=== PATIENT | female | born 1985 | race American Indian/Alaskan Native ===

== ENCOUNTER 2016-08-11 18:27 | Emergency (ER) | payer OTHER ==
[2016-08-11 18:37] VITALS: PULSE 82; RESP 16; TEMP 97.8; O2SAT 98; BMI 33.9
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
[2016-08-11 20:13] VITALS: BP 132/87
--- NOTE | 2016-08-12 11:23 | RAD ---
HISTORY: Upper back pain COMPARISON: No prior. FINDINGS: BONES: Bone alignment is normal. There is straightening of the thoracic spine. There are age indeterminate mild superior endplate compression deformities in the T8 and T9 vertebral bodies. DISC SPACES: Normal. SOFT TISSUES: Normal. OTHER FINDINGS: None. IMPRESSION: Age indeterminate mild superior endplate compression deformities in the T8 and T9 vertebral bodies. Straightening of the thoracic spine may be positional or related to muscle spasm.
== END 2016-08-11 20:12 | disposition home or self-care (01) ==
LOC: EDBD 18:27 → H.ER 18:27
DX: M54.9 Dorsalgia, unspecified (principal); M62.838 Other muscle spasm; V43.62XA Car passenger injured in collision with other type car in traffic accident, initial encounter; Y92.410 Unspecified street and highway as the place of occurrence of the external cause

== ENCOUNTER 2016-08-27 16:51 | Emergency (ER) | payer OTHER ==
[2016-08-27 16:52] VITALS: BMI 33.9
[2016-08-27 18:17] VITALS: BP 155/74; PULSE 96; RESP 16; TEMP 97.8; O2SAT 98
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
[2016-08-27 20:16] LABS: RBC URINE 1 /hpf (0-3); URINE BILIRUBIN NEGATIVE (NEGATIVE); URINE BLOOD NEGATIVE (NEGATIVE); URINE COLOR YELLOW (YELLOW); URINE GLUCOSE (UA) NEG (Normal); URINE KETONE NEGATIVE (NEGATIVE); URINE LEUKOCYTE ESTERASE NEG Leu/uL (Negative); URINE PROTEIN NEGATIVE (NEGATIVE); URINE UROBILINOGEN 0.2-1.0 mg/dL (0.2-1.0); WBC URINE 1 /hpf (0-5)
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
== END 2016-08-27 22:40 | disposition home or self-care (01) ==
LOC: H.ER 16:51
DX: M54.6 Pain in thoracic spine (principal); R30.0 Dysuria